=== PATIENT | female | born 1955 | race Caucasian/White ===

== ENCOUNTER 2016-05-18 05:40 | Day surgery (SDC) | payer OTHER ==
[2016-05-18] VITALS (9 sets, daily range): BP systolic 91–111; BP diastolic 48–70; PULSE 64–85; RESP 15–19; O2SAT 94–99
[~2016-05-18] VITALS: Ht 162.6 cm; Wt 60.2 kg
[~2016-05-18 05:40] MED LIST: DHEA PO; ENTA200T PO; ESTR0.5T PO; LORA0.5T PO; LVCR25100 PO; Lactated Ringer's 1,000 ML IV ONE; MULT-1018 PO; [UNRECOGNIZED DRUG - OTHER] PO; cinnamon PO; coq10 PO; fish oil PO; flaxseed oil PO; folic acid PO; glucosamine PO; magnesium oxide PO; turmeric PO; vitamin b PO; vitamin c PO; vitamin d3 PO; vitamin e PO
[2016-05-18] MEDS ORDERED: fentaNYL-PF 50 mCg/mL 2 mL Inj ONE (05:41)
[2016-05-18] MEDS ORDERED: Propofol 10,000 mCg/mL 20 mL Inj ONE (05:41)
[2016-05-18] MEDS ORDERED: Lidocaine PF 1% 30 mL Inj ONE (05:41)
[2016-05-18] MEDS ORDERED: Phenylephrine/NS 100 mCg/mL 10 mL Syringe IVPUSH ONE (05:41)
[2016-05-18] MEDS ORDERED: Ondansetron 2 mg/mL 2 mL Inj ONE (05:41)
[2016-05-18] MEDS ORDERED: MECL-114 PO (06:15)
[2016-05-18] MEDS ORDERED: [UNRECOGNIZED DRUG - OTHER] PO (06:15)
[2016-05-18] MEDS ORDERED: ASPI325T32 PO (06:15)
[2016-05-18] MEDS ORDERED: RANI150C4 PO (06:15)
[2016-05-18] MEDS ORDERED: ACET-171 PO (06:15)
[2016-05-18] MEDS ORDERED: [UNRECOGNIZED DRUG - CODE] PO (06:15)
[2016-05-18] MEDS ORDERED: RESV250C2 PO (06:15)
[2016-05-18] MEDS ORDERED: [UNRECOGNIZED DRUG - CODE] PO (06:15)
[2016-05-18] MEDS ORDERED: CELE200C PO (06:15)
[2016-05-18] MEDS ORDERED: LINOLEIC ACID PO (06:15)
[2016-05-18] MEDS ORDERED: ACET600C PO (06:15)
[2016-05-18] MEDS ORDERED: [UNRECOGNIZED DRUG - OTHER] PO (06:15)
[2016-05-18] MEDS ORDERED: CRAN1TAB5 PO (06:15)
[2016-05-18] MEDS: Dexamethasone Inj 20 MG in Dextrose 5%-Pha MIX 50 ML IV SCH ×2 (06:40→06:41)
[2016-05-18] MEDS ORDERED: Acetaminophen IV 1,000 MG in IV Premix 1 EACH IV ONE (06:55)
[2016-05-18] MEDS ORDERED: Phenylephrine 10,000 mCg/mL Inj IVPUSH PRN (07:00)
[2016-05-18] MEDS ORDERED: Ondansetron 2 mg/mL 2 mL Inj IVPUSH PRN (07:00)
[2016-05-18] MEDS ORDERED: hydrALAZINE 20 mg/mL Inj IVPUSH PRN (07:00)
[2016-05-18] MEDS ORDERED: fentaNYL-PF 50 mCg/mL 2 mL Inj IVPUSH PRN (07:00)
[2016-05-18] MEDS ORDERED: Labetalol 5 mg/mL 4 mL Inj IV PRN (07:00)
[2016-05-18] MEDS ORDERED: Lactated Ringer's 500 ML IV PRN (07:00)
[2016-05-18] MEDS ORDERED: Lactated Ringer's 1,000 ML IV SCH (07:00)
--- NOTE | 2016-05-18 07:01 | PCM.HPANE ---
Patient Data Date of Service: May 18, 2016 Surgeon Admitting Provider: Attending Provider:Monroe Claudio MD Primary Care Physician:Zheng Kim MD Other Provider:Tristian Lamar Anesthesia Reason for Visit Hyperparathyroidism Ht/WT & BMI Height (Feet): 5 Height (Inches): 4 Weight (Kilograms): 60.2 Body Mass Index 22.00 Allergies Coded Allergies: Quinolones (Verified Allergy, Unknown, ARTHRITIS, 12/04/08) Sulfa (Sulfonamide Antibiotics) (Verified Allergy, Unknown, skin reddening , 05/14/16) TAPE (Verified Allergy, Unknown, 05/14/16) no reaction to tegaderms ibuprofen (Verified Allergy, Unknown, NAUSEA, 12/04/08) Uncoded Allergies: FLU VACCINE (Allergy, Unknown, localized severe reaction, 05/14/16) Past Anesthesia History Anesthesia History: Denies:: Abnormal Airway, Anesthesia Reactions, Difficult Intubation, Fam Anesthesia Reaction Diabetes History Hx Diabetes?: No Medications Hypertension Medication: No Home Meds Incl Beta Ruy: No Reported Medications Meclizine (Bonine)25 Mg Tab.chew12.5 Mg PO DIRECTED PRN UNKNOWN 05/18/16 Celecoxib (Celebrex)200 Mg Gxjyabd899 Mg PO DIRECTED PRN UNKNOWN #30 CAPSULE Ref 0 05/18/16 Acetaminophen 500 Mg Tablet1 G PO DIRECTED PRN For Fever 05/18/16 Ranitidine 150 Mg Gvrdssa672 Mg PO DIRECTED PRN REFLUX Ref 0 05/18/16 [Chondroitin/Msm] No Conflict Check1,100 Mg PO DAILY 05/18/16 Lecithin 1,200 Mg Capsule1,200 Mg PO DAILY 05/18/16 [Linoleic Acid] No Conflict Tgnmo385 Mg PO DAILY 05/18/16 Resveratrol 250 Mg Tksnsvm741 Mg PO DAILY 05/18/16 [Hops] No Conflict Xmlue809 Mg PO HS 05/18/16 Cranberry Conc/C/Bacill Coag (Cranberry Tablet)1 Each Tablet1 Each PO TID 05/18/16 Acetylcysteine (Nac)600 Mg Lohjeuw588 Mg PO BID 05/18/16 [Diagen] No Conflict Lttci496 Mg PO BID 05/18/16 Aspirin 325 Mg Mxxscs437 Mg PO DAILY #1 BOTTLE 05/18/16 [marijuana tincture] No Conflict CheckUnknown Dose PO DAILY 05/14/16 [turmeric] No Conflict Yiypz668 Mg PO TID 05/14/16 [vitamin e] No Conflict Zeosc381 Mg PO DAILY 05/14/16 [vitamin b] No Conflict Check1 Tablet PO DAILY 05/14/16 [vitamin d3] No Conflict Check2,000 Mg PO DAILY 05/14/16 [vitamin c] No Conflict Check1,000 Mg PO DAILY 05/14/16 [magnesium oxide] No Conflict Ouufs379 Mg PO DAILY 05/14/16 Lorazepam 0.5 Mg Tablet0.75 Mg PO HS PRN For Insomnia Ref 0 05/14/16 [glucosamine] No Conflict Check1,500 Mg PO DAILY 05/14/16 [folic acid] No Conflict Ihzjc967 Mcg PO BID 05/14/16 [flaxseed oil] No Conflict Check1,000 Mg PO DAILY 05/14/16 [fish oil] No Conflict Check1,200 Mg PO DAILY 05/14/16 [Dhea] No Conflict Check50 Mg PO DAILY 05/14/16 [coq10] No Conflict Hrejd461 Mg PO DAILY 05/14/16 Multivitamin (Multi Vitamin Daily)1 Each Tablet1 Each PO DAILY 30 Days Ref 0 05/14/16 [cinnamon] No Conflict Icxif252 Mg PO BID 05/14/16 Estradiol 0.5 Mg Tablet0.5 Mg PO DAILY 05/14/16 Entacapone (Comtan)200 Mg Eqttoh633 Mg PO BID 05/14/16 Carbidopa/Levodopa 25-100 mg (Sinemet 25-100 mg)1 Each Tablet1.5 Tablet PO TID 05/14/16 History History of ENT Problems?: Yes HEENT History: Positive for:: Dysphagia (related to parkinsons, rare occurrence ) Hearing Problem (typical for age ) Sinus Problem (chronic recurrent sinusitis, no current sx) Denies:: Abnormal Airway Cataracts Difficult Intubation Glaucoma TMJ Hx of Heart Problems?: No Cardiovascular History: Denies:: AICD Abdominal Aortic Aneurism Atrial Fibrillation Cardiac Surgery Chest Pain Edema Heart Murmur Hypertension Irregular Heartbeat Pacemaker Peripheral Vascular Hx of Respiratory Problem?: No Respiratory History: Denies:: Asthma COPD (questions residual from group home smoking) Emphysema Oxygen Administration Pneumonia Tuberculosis (exposure to, no positive tests) Use of C-PAP Machine Use of Inhalers / NEBS Hx Neurologic Problems?: Yes Neurological History: Positive for:: Headaches (chronic cephalagia behind left eye, 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 Skin History: Denies:: History Skin Disorders? Pressure Ulcers Hx Musculoskeletal Problems?: Yes Musculoskeletal History: Positive for:: Musculoskeletal Trauma (tension on right side- related to parkinsons) Denies:: Back Injury Fibromyalgia Joint Replacement Osteoarthritis Rheumatoid Arthritis Systemic Lupus Hx of Psycho/Social Problems?: Yes Psycho Social History: Positive for:: Hx Depression (related to parkinsons disease ) Hx Surgeries?: Yes (vag hyst, tubal) Hx Any Other Health Problems?: Yes Other History: Positive for:: Thyroid Disease (parathyroid current admission problem) Denies:: Cancer History Blood Transfusions: Positive for:: Accept Blood Products? Denies:: Blood Transfusions Hx Diabetes: No Hx Alcohol Use: YesAlcoholic Drinks Per Day: 2 glasses wine dailyHx Substance Use: Yes (marijuana tincture daily )Have You Smoked inLast 12 mo: No Stop/Bang S-Snoring: Do You Snore Loudly: No T-Tired: feel tired, fatigued: Yes O-Obsered: Observed not breath: No P-Blood Pressure: treated: No B- Body Mass Index > 35 kg/m2: No A- Age over 50: Yes N- Neck Large Circumference: No G- Gender Male: No YOLANDA Total Score: 2 YOLANDA Risk Assessment: Low Risk, <3 Yes Risk Assessment Category Category 1A: Patient has history of documented sleep apnea, and HAS NOT received any narcotic, sedative or anesthesia administration during this stay. Category 1B: Patient has history of documented sleep apnea, and HAS received any narcotic , sedative or anesthesia administration during this stay Category 2: Patient has SUSPECTED Obstructive Sleep Apnea, and HAS received any narcotic , sedative or anesthesia administration during this stay. Category 3: Patient has SUSPECTED Obstructive Sleep Apnea and HAS NOT received narcotic, sedative or anesthesia administration during this stay. Category 4: Outpatient in Procedural Areas with known sleep apnea or who screen positive for High Risk via the STOP/BANG questionnaire. Exam Exam Vital Signs Vital Signs Date Time Temp Pulse Resp B/P Pulse Ox O2 Delivery O2 Flow Rate FiO2 05/18/16 06:25 35.9 64 16 111/70 98 Room Air General Appearance: Alert, Oriented X3, Cooperative HEENT/AIRWAY: MP 2, Neck Movement (OK), Mouth Opening (Wide), Other (> 3 FB TM distance) Lungs: Clear to Auscultation, Normal Air Movement Heart: Regular Rate/Rhythm, Normal S1, Normal S2 Meds/Labs/Diagnostics Admission Meds Current Medications Lactated Ringer's (Lr) 1,000 ml @ 120 mls/hr Q8H20M ONCE IV Last administered on 05/18/16t 05:42; Start 05/18/16 at 05:00; Stop 05/18/16 at 13:19 Labs Test 05/18/16 06:45 Plan Impression Patient chart reviewed, patient interviewed and anesthestic plan with risks, benefits, and alternatives discussed, and informed consent obtained. NPO Status: 199905/17/16 ASA Physical Status: ASA3 Severe Disease (parkinson's disease) Anesthetic Plan: GA Bene/Risks/Altern/Consents: Yes HP Complete Prior to Induction: Yes Other Discussed anesthetic plan with patient/. Requests TIVA. Pre-medicated at home with Celebrex, acetaminophen, meclizine, and Parkinson's Meds. Teddy Solorzano MD May 18, 2016 07:01
[2016-05-18] MEDS ORDERED: Lidocaine 1%-Epi 1:100,000 20 mL Inj INFILTRATE ONE (07:45)
--- NOTE | 2016-05-18 09:24 | PCM.ANEP1 ---
Post Anesthesia Phase 1 PACU Phase 1 Assessment Date of Service: May 18, 2016 Vital Signs Vital Signs Date Time Temp Pulse Resp B/P Pulse Ox O2 Delivery O2 Flow Rate FiO2 05/18/16 09:20 83 17 102/48 99 Simple Mask 8 05/18/16 09:15 80 16 91/57 99 Simple Mask 8 05/18/16 09:13 36.4 77 16 109/54 98 Simple Mask 8 05/18/16 06:25 35.9 64 16 111/70 98 Room Air Anesthetic Administered: GA Level of Alertness: Awake, talking WILLS's with Equal Strength: Yes Pain: No Nausea or Vomiting: No Oxygen Delivery: Simple Mask Lungs: Normal Air Movement Teddy Solorzano MD May 18, 2016 09:24
--- NOTE | 2016-05-18 09:58 | PCM.ANEP2 ---
Post Anesthesia Evaluation ASA/CMS Post Anesthesia Date of Service: May 18, 2016 VS in Patient's Normal Range?: Yes Resp Stable; Airway Patent?: Yes CV Function & Hydration Stable: Yes Mental Status Recovered?: Yes Pain control Satisfactory?: Yes N/V Control Satisfactory?: Yes Teddy Solorzano MD May 18, 2016 09:58
--- NOTE | 2016-05-18 20:40 | OP ---
[address] [address] OPERATIVE REPORT PATIENT: CHANNING BROOKS : 1955 MR#: [id number] ADMIT: 05/18/2016 JOB ID: [id number] DATE OF SURGERY: SURGEON: Monroe Claudio MD. ASSIST: Vishnu Dexter MD. PREOPERATIVE DIAGNOSIS(ES): Primary hyperparathyroidism. POSTOPERATIVE DIAGNOSIS(ES): Primary hyperparathyroidism with left inferior pole parathyroid adenoma. PROCEDURE: Parathyroid exploration, removal of left inferior pole parathyroid adenoma. HISTORY AND INDICATIONS: A 60-year-old woman with elevated calcium and PTH levels. Preoperative 4-dimensional CT indicated left inferior pole pathology. PROCEDURE AND FINDINGS: Patient taken to the operating room, placed in supine position on the operating table. General endotracheal anesthesia was induced. Neck was prepped and draped in sterile fashion. The planned incision was injected with 2% lidocaine 1:100,000 epinephrine. With a 15 blade, a 3 cm curvilinear incision was made along the anterior neck. The dissection continues through the subcutaneous fat and platysma. Subplatysmal flaps were elevated cephalad and caudad and a self-retaining retractors was placed. The strap muscles were in midline exposing the thyroid. Careful blunt dissection near the inferior pole of the parathyroid identifies a 1.5 cm clinical parathyroid gland. This was removed. Frozen section was consistent with parathyroid adenoma. Parathyroid hormone level drawn intraoperatively dropped from 126 preop to 56 intra-op. The straps and subcutaneous and platysmal layers were closed with interrupted buried 4-0 chromic. The skin is closed with Dermabond. ESTIMATED BLOOD LOSS: Less than 5 cc. COMPLICATIONS: None. DRAINS: None.
== END 2016-05-18 23:59 | disposition home or self-care (01) ==
LOC: SAS 05:40
PROVIDERS: ATTEND Otolaryngology Facial Plastic Surgery
DX: D35.1 Benign neoplasm of parathyroid gland (principal); E21.0 Primary hyperparathyroidism; G20 Parkinson's disease; F41.8 Other specified anxiety disorders; K21.9 Gastro-esophageal reflux disease without esophagitis; F12.90 Cannabis use, unspecified, uncomplicated